=== PATIENT | male | born 1975 | race African-American/Black ===

== ENCOUNTER 2018-01-05 09:34 | Outpatient (CLI) | payer BC ==
[2018-01-05 12:55] LABS: ALBUMIN 4.1 g/dL (3.2-5.5); ALBUMIN/GLOBULIN RATIO 1.1 (1.0-2.2); BILIRUBIN,TOTAL 0.7 mg/dL (0.2-1.0); CALCIUM 9.2 mg/dL (8.5-10.3); CREATININE 1.2 mg/dL (0.6-1.2); TOTAL PROTEIN 7.7 g/dL (6.7-8.2)
== END 2018-01-05 09:35 | disposition home or self-care (01) ==
LOC: LAB.WCP 09:34
PROVIDERS: ATTEND Physician Assistant Medical
DX: R74.8 Abnormal levels of other serum enzymes (principal)
CPT/HCPCS: 36415; 80053

== ENCOUNTER 2020-05-14 20:48 | Outpatient (CLI) | payer OTHER | END 2020-05-14 20:49 | disposition home or self-care (01) | LOC: COV 20:48 | PROVIDERS: ATTEND Family Medicine | DX: Z20.828 Contact with and (suspected) exposure to other viral communicable diseases (principal) ==

== ENCOUNTER 2020-07-14 08:05 | Outpatient (CLI) | payer OTHER | END 2020-07-14 23:59 | disposition home or self-care (01) | LOC: COV 08:05 | PROVIDERS: ATTEND Family Medicine | DX: Z20.828 Contact with and (suspected) exposure to other viral communicable diseases (principal) ==

== ENCOUNTER 2021-04-23 13:24 | Emergency (ER) | payer BC, OTHER ==
[2021-04-23 14:10] VITALS: BP 117/73
--- NOTE | 2021-04-23 15:52 | ED Physician Documentation ---
PD HPI MALE - Stated complaint Stated Complaint: MALE - Chief complaint Chief Complaint: General - History obtained from History obtained from: Patient - History of Present Illness Timing - onset: How many days ago (he was told by his girlfriend that she tested positive for Chlamydia and needed to get evaluated. Last sexual contact several days ago. Patient not having any symptoms.) Associated symptoms: No: Dysuria, Urinary frequency, Discharge, Genital sore / lesion, Testiclar pain PD HPI MALE CONTRIB FACTORS: Sexually active, Exposed to STD (chlamydia) Similar symptoms before: Has not had sx before Recently seen: Not recently seen Review of Systems Constitutional: denies: Fever, Chills Throat: denies: Sore throat : denies: Dysuria, Discharge PD PAST MEDICAL HISTORY - Past Medical History Past Medical History: No - Past Surgical History Past Surgical History: Yes - Present Medications Home Medications: Ambulatory Orders Medication Instructions Recorded Confirmed HYDROcod/ACETAM 5/325 [Vicodin 1 - 2 ea PO Q6H PRN #15 tablet 01/20/15 5/325] Doxycycline Hyclate 100 mg PO BID 7 Days #14 tab 04/23/21 - Allergies Allergies/Adverse Reactions: Allergies Allergy/AdvReac Type Severity Reaction Status Date / Time No Known Drug Allergies Allergy Verified 04/23/21 13:48 - Social History Does the pt smoke?: Yes Smoking Status: Current every day smoker Does the pt drink ETOH?: Yes Does the pt have substance abuse?: No - Immunizations Immunizations are current?: Yes - POLST Patient has POLST: No PD ED PE NORMAL - Vitals Vital signs reviewed: Yes - General General: Alert and oriented X 3, No acute distress, Well developed/nourished - Male Male : Deferred - Derm Derm: Normal color, Warm and dry - Neuro Neuro: Alert and oriented X 3 Results - Vitals Vitals: Vital Signs - 24 hr 04/23/21 13:46 Temperature 36.6 C Heart Rate 80 Respiratory 14 Rate Blood Pressure 117/73 O2 Saturation 100 Oxygen O2 Source Room air PD MEDICAL DECISION MAKING - ED course Complexity details: considered differential (empirically treat for Chlamydia exposure. Per STI guidelines, will Rx with Doxycycline as patient agrees on week long therapy, given rationale of higher cure rate. ), d/w patient Departure - Departure Disposition: Home, Self Care Clinical Impression: Chlamydia contact Condition: Stable Record reviewed to determine appropriate education?: Yes Prescriptions: Doxycycline Hyclate 100 mg PO BID 7 Days #14 tab Comments: Take the doxycycline twice daily with food for the next week. Stay well- hydrated. The above antibiotic typically provides good coverage for chlamydia exposure. Recheck if any subsequent symptoms develop of discomfort with urination or discharge. Transmitted the prescription to [facility] pharmacy in [place]. Discharge Date/Time: 04/23/21 16:38
[2021-04-23] MEDS ORDERED: DOXYCYCLINE 100 MG TABLET PO STA (16:12)
== END 2021-04-23 16:38 | disposition home or self-care (01) ==
LOC: ED 13:24
DX: Z20.2 Contact with and (suspected) exposure to infections with a predominantly sexual mode of transmission (principal); F17.200 Nicotine dependence, unspecified, uncomplicated
CPT/HCPCS: 99282; 99283; A9270